=== PATIENT | female | born 1965 | race Caucasian/White ===

== ENCOUNTER → 2018-12-26 14:10 | Outpatient (CLI) | payer OTHER, SELFPAY ==
[2018-12-26 14:31] LABS: Influenza A and B by PCR Rapid Negative (Negative)
== END ==
PROVIDERS: Family Provider Specialist; Visit Provider Physician Assistant
DX: R05 Cough (principal); R39.9 Unspecified symptoms and signs involving the genitourinary system
CPT/HCPCS: 87086; 87502

== ENCOUNTER 2019-02-14 11:48 | Emergency (ER) | payer OTHER, SELFPAY ==
[2019-02-14 12:00] VITALS: BP 145/71; PULSE 43; RESP 18; O2SAT 100
[2019-02-14 12:05] LABS: Add Manual Diff / Slide Review NO; Basophils Absolute Auto 100 /uL (0-100); Basophils Percent Auto 1.4 % (0-2); Eosinophils Absolute Auto 300 /uL (0-450); Eosinophils Percent Auto 5.5 % (2-4); Hematocrit 42.5 % (36-46); Hemoglobin 14.7 g/dL (12.0-16.0); Lymphocytes Absolute Auto 2800 /uL (1100-4500); Mean Corpuscular HGB Conc 34.7 % (30-36); Mean Corpuscular Hemoglobin 30.5 PG (26-34); Mean Corpuscular Volume 87.8 fL (80-100); Monocytes Absolute Auto 1100 /uL (0-900); Monocytes Percent Auto 17.5 % (3-14); Neutrophils Absolute Auto 1900 /uL (1500-7000); Neutrophils Percent Auto 30.6 % (50-75); Platelet Count 208 X10^3/uL (150-400); Red Blood Cell Count 4.84 X10^6/uL (4.0-5.2); Red Cell Distribution Width 14.4 % (11.6-14.8); White Blood Cell Count 6.2 X10^3/uL (4.5-11.0)
[2019-02-14 12:16] LABS: Alanine Aminotransferase 22 IU/L (<35); Albumin Globulin Ratio 1.5 (1.0-2.8); Alkaline Phosphatase 64 U/L (38-126); Aspartate Aminotransferase 28 IU/L (14-36); BUN Creatinine Ratio 23.3 (6-22); Bilirubin Total 0.6 mg/dL (0.2-1.3); Blood Urea Nitrogen 14 mg/dL (7-17); Calcium 9.1 mg/dL (8.4-10.2); Carbon Dioxide 25 mmol/L (22-32); Chloride 104 mmol/L (98-107); Estimated Glomerular Filt Rate > 60.0 mL/min (>60); Globulin 2.6 g/dL (1.7-4.1); Glucose 120 mg/dL (70-100); HEMOLYSIS < 15 (0-50); Lipase 73 U/L (23-300); Potassium 3.7 mmol/L (3.4-5.1); Sodium 137 mmol/L (137-145); Total Protein 6.6 g/dL (6.3-8.2)
--- NOTE | 2019-02-14 12:36 | ED.ABDPAIN ---
HPI - Abdominal Pain General Chief Complaint: Abdominal Pain Stated Complaint: Abdominal pain Time Seen by Provider: 02/14/19 12:36 Source: patient Mode of arrival: Ambulatory Limitations: no limitations History of Present Illness HPI narrative: 54-year-old female comes to the emergency department with complaint of left lower abdominal and flank pain that came on fairly suddenly today. Patient states she has had frequency, urgency and dysuria. No fevers or chills. She feels nauseated when the pain is intense. It sort of waxes and wanes in intensity. She states it is mostly in the flank. She denies any issues with bowel movements and states she had a normal bowel movement today. She denies any other abdominal pain. She states she has had an appendectomy along with breast surgery in the past. She states she has had a colonoscopy and had diverticulosis noted but has not had infection or diverticulitis in the past. She has allergies to several antibiotics. Related Data Previous Rx's Medication Instructions Recorded triamcinolone acetonide 0.1 % 1 applictn TOP TID #80 gram 08/23/18 topical cream ciprofloxacin HCl 500 mg PO BID #20 tab 02/14/19 ondansetron HCl [Zofran] 4 mg PO Q6H PRN #5 tab 02/14/19 oxycodone-acetaminophen [Percocet] 1 tab PO QID PRN #10 tab 02/14/19 Allergies Allergy/AdvReac Type Severity Reaction Status Date / Time Penicillins [PENICILLINS] Allergy Severe RASH/SHOCK Verified 12/26/18 13:59 nitrofurantoin Allergy Mild Verified 12/26/18 13:59 [From MACROBID] Sulfa (Sulfonamide Allergy Mild RASH Verified 12/26/18 13:59 Antibiotics) [SULFA (SULFONAMIDE ANTIBIOTICS)] Review of Systems Review of Systems ROS Unobtainable: All systems reviewed & are unremarkable except as noted in HPI and below Patient History Surgical History (Updated 02/14/19 @ 12:47 by Anna Marie Dorantes DO) Hx of appendectomy (Acute) Social History Smoking Status: Never smoker Smoking Status: Never smoker Exam Narrative Exam Narrative: GENERAL: Alert and oriented x three, thin female in moderate distress. HEENT: Head normocephalic, atraumatic, EOMI, pupils reactive, face symmetric, moist mucous membranes NECK: Supple, full range of motion CARDIOVASCULAR: Regular rate and rhythm without murmurs, rubs or gallops. RESPIRATORY: Breath sounds equal bilaterally, no wheezes rales or rhonchi. ABDOMEN: Soft, mild left lower quadrant tenderness. No other abdominal tenderness with palpation. Normoactive bowel sounds all 4 quadrants. No guarding or rebound, rigidity, no mass : Mild left CVA tenderness, no right CVA tenderness. EXTREMITIES: Normal range of motion, no clubbing or edema. Neurovascularly intact NEUROLOGICAL: Cranial nerves II through XII grossly intact. Moving all extremities SKIN: Warm, dry, no petechiae, no rashes or lesions. Initial Vital Signs Initial Vital Signs: Vital Signs Pulse Rate 43 L 02/14/19 12:00 Respiratory Rate 18 02/14/19 12:00 Blood Pressure 145/71 H 02/14/19 12:00 Pulse Oximetry 100 02/14/19 12:00 Course Orders Ordered: ED Orders 02/14/19 12:00 Complete Blood Count AUTO DIFF Stat Comprehensive Metabolic Panel Stat Lipase Stat 02/14/19 12:23 Urine Culture Stat Urine Microscopic Stat 02/14/19 12:45 CT kidney ureter bladder (KUB) Stat Discontinued Medications Ciprofloxacin (Cipro) 500 mg PO NOW ONE Stop: 02/14/19 14:16 Last Admin: 02/14/19 14:26 Dose: 500 mg Documented by: MEISENB Hydromorphone HCl (Dilaudid) 0.5 mg IV NOW ONE Stop: 02/14/19 13:07 Last Admin: 02/14/19 13:13 Dose: 0.5 mg Documented by: MEISENB Sodium Chloride (Normal Saline 0.9%) 1,000 mls @ 1,000 mls/hr IV BOLUS ONE Stop: 02/14/19 13:45 Last Infusion: 02/14/19 14:21 Dose: 0 mls/hr Documented by: Admin: 02/14/19 12:55 Dose: 1,000 mls/hr Documented by: MEISENB Ketorolac Tromethamine (Toradol) 30 mg IV NOW ONE Stop: 02/14/19 12:46 Last Admin: 02/14/19 12:55 Dose: 30 mg Documented by: MEISENB Ondansetron HCl (Zofran) 4 mg IV NOW ONE Stop: 02/14/19 12:46 Last Admin: 02/14/19 14:38 Dose: Not Given Documented by: MARISA Vital Signs Vital signs: Vital Signs - 8 hr 02/14/19 12:00 02/14/19 13:05 02/14/19 13:40 Pulse Rate 43 L 44 L 51 L Respiratory Rate 18 12 16 Blood Pressure [Left Arm] 145/71 H 148/81 H 118/70 Pulse Oximetry 100 100 100 02/14/19 14:00 Pulse Rate 52 L Respiratory Rate 15 Blood Pressure [Left Arm] 108/73 Pulse Oximetry 100 MDM - Abdominal Pain Lab Data Attestation: I reviewed the patient's lab results. Result diagrams: 02/14/19 12:00 02/14/19 12:00 Labs: Lab Results 02/14/19 02/14/19 02/14/19 Range/Units 12:00 12:00 12:23 WBC 6.2 (4.5-11.0) X10^3/uL RBC 4.84 (4.0-5.2) X10^6/uL Hgb 14.7 (12.0-16.0) g/dL Hct 42.5 (36-46) % MCV 87.8 (80-100) fL MCH 30.5 (26-34) PG MCHC 34.7 (30-36) % RDW 14.4 (11.6-14.8) % Plt Count 208 (150-400) X10^3/uL Neut % (Auto) 30.6 L (50-75) % Lymph % (Auto) 45.0 H (25-40) % [place] % (Auto) 17.5 H (3-14) % Eos % (Auto) 5.5 H (2-4) % Baso % (Auto) 1.4 (0-2) % Neut # (Auto) 1900 (7445-6039) /uL Lymph # (Auto) 2800 (7761-6125) /uL [place] # (Auto) 1100 H (0-900) /uL Eos # (Auto) 300 (0-450) /uL Baso # (Auto) 100 (0-100) /uL Sodium 137 (137-145) mmol/L Potassium 3.7 (3.4-5.1) mmol/L Chloride 104 (98-107) mmol/L Carbon Dioxide 25 (22-32) mmol/L BUN 14 (7-17) mg/dL Creatinine 0.60 (0.52-1.04) mg/dL Estimated GFR > 60.0 (>60) mL/min BUN/Creatinine Ratio 23.3 H (6-22) Glucose 120 H (70-100) mg/dL Calcium 9.1 (8.4-10.2) mg/dL Total Bilirubin 0.6 (0.2-1.3) mg/dL AST 28 (14-36) IU/L ALT 22 (<35) IU/L Alkaline Phosphatase 64 (38-126) U/L Total Protein 6.6 (6.3-8.2) g/dL Albumin 4.0 (3.5-5.0) g/dL Globulin 2.6 (1.7-4.1) g/dL Albumin/Globulin Ratio 1.5 (1.0-2.8) Lipase 73 (23-300) U/L Urine RBC 10-30/hpf H (0-5/HPF) Urine WBC 0-1/hpf (0-5/HPF) Ur Squamous Epith Cells 1-5 /hpf (0-5/HPF) Urine Bacteria Few (2-10) H (None) Ur Culture Indicated? Specimen cultured Point of care testing: Point of Care Testing Test Results Negative Urine Dip Bedside Urine Glucose Negative Bedside Urine Bilirubin - Negative Bedside Urine Ketone - Negative Urine Specific [place] 1.010 Bedside Urine Occult Blood ++ Bedside Urine pH 8.5 Bedside Urine Protein +/- 15 Bedside Urine Urobilinogen - Negative Bedside Urine Nitrite - Negative Bedside Urine Leukocytes - Negative Esterase Imaging Data CT scan - abdomen/pelvis: Radiologist's Impression: [address] [address] [address] Scan Report Signed Patient: Anna Marie Cerad RMR#: [id number] : 1965Acct:[id number] Age/Sex: 54 / FDate of Service: 02/14/19 Loc: ED Accession Number: [id number] Procedure: CT kidney ureter bladder (KUB) Ordering Provider: Anna Marie Dorantes D.O. PROCEDURE: CT KIDNEY URETER BLADDER (KUB) INDICATIONS: suspected stone, left flank, LLQ pain TECHNIQUE: Noncontrast 5 mm thick sections acquired from the diaphragms to the symphysis. 5 mm thick coronal and sagittal reformats were then performed. For radiation dose reduction, the following was used: automated exposure control, adjustment of mA and/or kV according to patient size. COMPARISON: None. FINDINGS: Image quality: Excellent. Lung bases: Lung bases are clear. Heart size is normal. Mammoplasty implants are incidentally noted. Urinary system: Both kidneys are normal in size. 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 No kidney stones. No hydronephrosis or perinephric fat stranding. Both ureters appear non-dilated throughout their expected courses. Bladder wall thickness is normal; no calcified bladder stones. Other solid organs: Liver is normal in size. Gallbladder wall does not appear thickened. Pancreas is normal in contours. Spleen is normal in size. No adrenal nodules. Peritoneum and bowel: Unenhanced bowel loops demonstrate normal wall thickness and caliber. No free fluid or air. Right upper quadrant postoperative clips are seen. Nodes and vessels: No retroperitoneal or mesenteric adenopathy by size criteria. Aorta and inferior vena cava are normal in caliber. Abdominal wall: No ventral hernias. Pelvis: No free pelvic fluid. No inguinal hernias or adenopathy. Pelvic phleboliths are incidentally noted. Postoperative clips are seen within the pelvis. Bones: Prior pelvic trauma with reconstruction can be seen. No suspicious bony lesions. No vertebral body compression fractures. Partial fusion change can be seen at L5-S1. IMPRESSION: No findings of kidney stones or obstructive uropathy can be seen. 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 Incidental note is made of: Mammoplasty implants Right lower quadrant postoperative clips, please correlate with appendectomy Partial L5-S1 fusion change. Prior pelvic trauma with reconstruction changes Dictated by: Juan Rod M.D. on 02/14/2019 at 12:52 Approved by: Juan Rod M.D. on 02/14/2019 at 12:55 ECG Data Attestation: I personally reviewed and interpreted this ECG as follows: Prior ECG tracings: not available for review Interpretation: Sinus bradycardia rate of 42 P are 1 to D 6 QRS of 92 and QTC of 442. No ST elevation appreciated. No depression noted. MDM Narrative Medical decision making narrative: Is positive for hematuria with no other clear signs of infection such as nitrates or leuks. Patient has had some UTI/pyelo symptoms but also potentially could have a kidney stone. Diverticulitis is on the differential although less likely and patient is only mildly tender in the left lower quadrant vs other causes. Patient's CT shows likely duplex kidney with prior reconstruction of pelvis, she had hematuria but no other major changes with her lab work, urinalysis or CT to describe her symptoms. At this time I would treat her for potential pyelo as she has had frequency, dysuria urgency with flank pain. Urine was sent for culture. Patient feels much better at this time. She states that she also had a double bladder in the past. So she is not surprised by the finding on her CT. Discussed that I suspect she may have pyelo although urine is inconclusive and culture is pending, we discussed her findings on her imaging. She will do a dose of oral antibiotics here make sure she can keep the medication down. Patient states she has had Cipro tolerated in the past. Plan for short course of narcotic pain medication and Zofran although she states she wasn't really nauseated till here. Signs and symptoms and reasons to return were discussed. Discharge Plan Departure Patient Disposition: Home Clinical Impression: Pyelonephritis, Duplex kidney Discharge Date/Time: 02/14/19 14:42 Instructions: DI for Kidney Infection Activity Restrictions/Additional Instructions: Follow-up in the next 2-3 days for recheck if your symptoms have not resolved. Take antibiotics until completely gone. Take zofran tablet every 6 hours as needed for nausea Take pain medications as prescribed these medications can make you sleepy don't drive, perform hazardous activities or make any major decisions while taking them. [facility]. Return to the ER for fevers greater 100.4 F, recurrent or worsening symptoms, changing abdominal pain, persistent vomiting, black or bloody stools, lightheadedness, passing out or other new or concerning symptoms. Prescriptions: New ciprofloxacin HCl 500 mg tablet 500 mg PO BID Qty: 20 RF: 0 ondansetron HCl [Zofran] 4 mg tablet 4 mg PO Q6H PRN (Reason: nausea and vomiting) Qty: 5 RF: 0 oxycodone-acetaminophen [Percocet] 5-325 mg tablet 1 tab PO QID PRN (Reason: pain) Qty: 10 RF: 0 No Action triamcinolone acetonide 0.1 % cream 1 applictn TOP TID Qty: 80 RF: 0
--- NOTE | 2019-02-14 12:45 | DI.CT.S_ITS ---
PROCEDURE: CT KIDNEY URETER BLADDER (KUB) INDICATIONS: suspected stone, left flank, LLQ pain TECHNIQUE: Noncontrast 5 mm thick sections acquired from the diaphragms to the symphysis. 5 mm thick coronal and sagittal reformats were then performed. For radiation dose reduction, the following was used: automated exposure control, adjustment of mA and/or kV according to patient size. COMPARISON: None. FINDINGS: Image quality: Excellent. Lung bases: Lung bases are clear. Heart size is normal. Mammoplasty implants are incidentally noted. Urinary system: Both kidneys are normal in size. 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 No kidney stones. No hydronephrosis or perinephric fat stranding. Both ureters appear non-dilated throughout their expected courses. Bladder wall thickness is normal; no calcified bladder stones. Other solid organs: Liver is normal in size. Gallbladder wall does not appear thickened. Pancreas is normal in contours. Spleen is normal in size. No adrenal nodules. Peritoneum and bowel: Unenhanced bowel loops demonstrate normal wall thickness and caliber. No free fluid or air. Right upper quadrant postoperative clips are seen. Nodes and vessels: No retroperitoneal or mesenteric adenopathy by size criteria. Aorta and inferior vena cava are normal in caliber. Abdominal wall: No ventral hernias. Pelvis: No free pelvic fluid. No inguinal hernias or adenopathy. Pelvic phleboliths are incidentally noted. Postoperative clips are seen within the pelvis. Bones: Prior pelvic trauma with reconstruction can be seen. No suspicious bony lesions. No vertebral body compression fractures. Partial fusion change can be seen at L5-S1. IMPRESSION: No findings of kidney stones or obstructive uropathy can be seen. 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 Incidental note is made of: Mammoplasty implants Right lower quadrant postoperative clips, please correlate with appendectomy Partial L5-S1 fusion change. Prior pelvic trauma with reconstruction changes Dictated by: Juan Rod M.D. on 02/14/2019 at 12:52 Approved by: Juan Rod M.D. on 02/14/2019 at 12:55
[2019-02-14 12:47] LABS: Bacteria Urine Few (2-10); RBC Urine 10-30/HPF (0-5/HPF); Squamous Epithelial Cell Urine 1-5 /HPF (0-5/HPF); WBC Urine 0-1/HPF (0-5/HPF)
[2019-02-14 12:48] LABS: Culture Indicated Urine Specimen Cultured
[2019-02-14] MEDS: KETOROLAC 60 MG/2 ML VIAL 30 MG IV (12:55)
[2019-02-14] MEDS: SODIUM CHLORIDE 0.9% 1,000 ML 1000 ML IV (12:55)
--- NOTE | 2019-02-14 13:04 | PC.NURSE ---
responds appropriately, states, felt like passing out and had to have a bowel movement. pt remain on the bedpan at this time.
[2019-02-14 13:05] VITALS: BP 148/81; PULSE 44; RESP 12; O2SAT 100
[2019-02-14] MEDS: HYDROMORPHONE 0.5 MG INJ IV (13:13)
[2019-02-14 13:40] VITALS: BP 118/70; PULSE 51; RESP 16; O2SAT 100
[2019-02-14 14:00] VITALS: BP 108/73; PULSE 52; RESP 15; O2SAT 100
[2019-02-14] MEDS: CIPROFLOXACIN 500 MG TABLET PO (14:26)
== END 2019-02-14 14:42 | disposition home or self-care (01) ==
PROVIDERS: Emergency Provider Emergency Medicine; Family Provider Specialist
DX: N12 Tubulo-interstitial nephritis, not specified as acute or chronic (principal); Q63.0 Accessory kidney; R00.1 Bradycardia, unspecified
CPT/HCPCS: 36415; 74176; 80053; 81003; 81015; 81025; 83690; 85025; 87086; 93005; 96361; 96374; 96375; 99284; 99285; J1170; J1885

== ENCOUNTER → 2019-08-25 15:07 | Outpatient (CLI) | payer BC, SELFPAY ==
[2019-08-26 04:39] LABS: RPR Screen Non Reactive (Non Reactive)
[2019-08-26 07:39] LABS: Hepatitis B Surf Ab Qualitativ Non Reactive (.)
[2019-08-26 16:14] LABS: HIV 1 & 2 Ab/Ag 4th Gen Combo NEGATIVE (NEGATIVE); Hep C Virus Ab w/Reflex Quant NEGATIVE s/c (NEGATIVE)
== END ==
PROVIDERS: Family Provider Specialist; PCP Family Medicine; Referring Provider Specialist; Visit Provider Specialist
DX: Z20.2 Contact with and (suspected) exposure to infections with a predominantly sexual mode of transmission (principal)
CPT/HCPCS: 36415; 86592; 86706; 86803; 87389

== ENCOUNTER → 2021-09-17 14:41 | Outpatient (CLI) | payer BC, SELFPAY ==
--- NOTE | 2021-09-17 14:42 | DI.US.S_ITS ---
PROCEDURE: US PELVIC COMPLETE INDICATIONS: ENLARGED UTERUS ON EXAM TECHNIQUE: Real-time scanning was performed of the pelvic organs, with image documentation. Additional endovaginal scanning was necessary due to incomplete visualization of the adnexal and endometrial structures by transabdominal scanning. COMPARISON: None. FINDINGS: Uterus: Uterus is anteverted and enlarged in size at 10.9 x 7.0 x 8.3 cm. The myometrium is heterogeneous. The endometrium measures 3.2 mm combined thickness. Multiple intramural fibroids are present, largest measuring 8.6 x 6.2 x 8.3 cm. Ovaries: Right ovary measures 2.2 x 1.7 x 2.6 cm and the left 2.5 x 1.6 x 2.4 cm. Other: No pathologic free abdominal or pelvic fluid. IMPRESSION: 1. Leiomyomatous uterus with the largest fibroid measuring up to 8.6 cm. If clinically indicated, interventional radiology consultation with Dr. Orr could be scheduled at [facility] to further discuss possible uterine artery embolization options. We strive to produce accurate, complete, and clear reports of imaging services. To assist us in improving patient care, this report was composed using standard report templates and voice recognition software. Therefore, it may contain abnormal punctuation, insertions and/or omissions. Occasional wrong-word or sound-alike substitutions may occur. Though we review the report and make efforts to correct it, we do recommend that the report be read carefully in proper context to recognize any text inaccuracies. Dictated by: Leo HUFFMAN Interpreted: Cong Orr MD on 09/17/2021 at 15:39 Transcribed by: ALEX on 09/17/2021 at 15:42 Approved by: Cong Orr M.D. on 09/17/2021 at 16:38
== END ==
PROVIDERS: Family Provider Specialist; PCP Family Medicine; Referring Provider Obstetrics & Gynecology; Visit Provider Obstetrics & Gynecology
DX: D25.1 Intramural leiomyoma of uterus (principal); N85.2 Hypertrophy of uterus
CPT/HCPCS: 76856